=== PATIENT | male | born 1990 | race African-American/Black ===

== ENCOUNTER 2016-10-28 03:06 | Emergency (ER) | payer OTHER | END 2016-10-28 08:15 | disposition home or self-care (01) | LOC: CED 03:06 | DX: F10.10 Alcohol abuse, uncomplicated (principal); F12.10 Cannabis abuse, uncomplicated; Y90.9 Presence of alcohol in blood, level not specified | CPT/HCPCS: 36415; 82947; 96361; 96374; 99284; G0480; J2405 ==